=== PATIENT | female | born 1940 | race Caucasian/White ===

== ENCOUNTER 2019-09-04 19:25 | Inpatient (IN) ==
[2019-09-04] MEDS: *HR* OxyCODONE Immed Rel 5 MG TABLET PO PRN (23:34)
[2019-09-05] MEDS: *HR* OxyCODONE Immed Rel 5 MG TABLET PO PRN ×4 (06:16→20:08)
[2019-09-05] MEDS ORDERED: Aspirin Enteric Coated 81 MG Tablet PO SCH (09:00)
[2019-09-05] MEDS: Ascorbic Acid 500 MG TABLET PO SCH ×2 (09:08→20:09)
[2019-09-05] MEDS: Cholecalciferol (D-3) 1,000 UNIT (25MCG) TABLET PO SCH (09:08)
[2019-09-05] MEDS: Magnesium Oxide 400 MG TABLET PO SCH (09:08)
[2019-09-05] MEDS: *HR* Heparin 5,000 UNIT/ML VIAL SQ SCH ×2 (09:27→16:26)
[2019-09-05] MEDS ORDERED: cloNIDine HCl 0.1 MG TABLET PO PRN (13:58)
[2019-09-05] MEDS ORDERED: *HR* OxyCODONE Immed Rel 5 MG TABLET PO ONE (14:02)
[2019-09-05 14:33] LABS: Basophils % 0.3 %; Eosinophils % 0.1 %; Hematocrit 35.4 % (35.3-44.9); Hemoglobin 11.7 g/dL (11.5-15.4); Immature Granulocytes % 0.7 % (0-4); Lymphocytes # 1.3 K/mcL (0.6-4.6); Lymphocytes % 11.8 %; Mean Corpuscular HGB Conc 33.1 g/dL (31.6-35.5); Mean Corpuscular Volume 96.7 fL (83.0-100.0); Mean Platelet Volume 9.3 fL (9.4-12.4); Monocytes # 1.1 K/mcL (0.0-1.3); Monocytes % 10.2 %; Neutrophils # 8.4 K/mcL (1.6-8.9); Platelet Count 275 K/mcL (140-400); Red Blood Count 3.66 M/mcL (3.82-4.97); Red Cell Distribution Width 13.6 % (11.5-14.5); Segmented Neutrophils % 76.9 %; White Blood Count 10.9 K/mcL (4.3-11.1)
[2019-09-05 15:08] LABS: BUN/Creatinine Ratio 37 (6-26); Blood Urea Nitrogen 16 mg/dL (8-23); Calcium 9.2 mg/dL (8.6-10.3); Carbon Dioxide 23 mEq/L (23-29); Chloride 96 mEq/L (98-107); Glucose 148 mg/dL (70-105); Osmolality,Calculated 270 (280-300); Potassium 3.5 mEq/L (3.5-5.1); Sodium 128 mEq/L (136-145); eGFR For African Americans > 60 (> 60); eGFR For Non-African Americans > 60 (> 60)
[2019-09-05] MEDS ORDERED: Latanoprost 2.5 ML BOTTLE BOTH EYES SCH (18:00)
[2019-09-05] MEDS: Latanoprost 2.5 ML BOTTLE BOTH EYES SCH (20:09)
[2019-09-05] MEDS: Melatonin 3 MG TABLET PO PRN (20:09)
[2019-09-06] MEDS: *HR* OxyCODONE Immed Rel 5 MG TABLET PO PRN ×5 (00:17→17:57)
[2019-09-06] MEDS: *HR* Enoxaparin 40 MG/0.4 ML SYRINGE SQ SCH (05:24)
[2019-09-06 06:20] LABS: BUN/Creatinine Ratio 24 (6-26); Blood Urea Nitrogen 9 mg/dL (8-23); Calcium 9.1 mg/dL (8.6-10.3); Carbon Dioxide 31 mEq/L (23-29); Chloride 97 mEq/L (98-107); Glucose 111 mg/dL (70-105); Osmolality,Calculated 277 (280-300); Potassium 3.6 mEq/L (3.5-5.1); Sodium 134 mEq/L (136-145); eGFR For African Americans > 60 (> 60); eGFR For Non-African Americans > 60 (> 60)
[2019-09-06] MEDS: Magnesium Oxide 400 MG TABLET PO SCH (08:52)
[2019-09-06] MEDS: Ascorbic Acid 500 MG TABLET PO SCH ×2 (08:52→20:31)
[2019-09-06] MEDS: Cholecalciferol (D-3) 1,000 UNIT (25MCG) TABLET PO SCH (08:52)
[2019-09-06] MEDS: Melatonin 3 MG TABLET PO PRN (20:31)
[2019-09-06] MEDS: Latanoprost 2.5 ML BOTTLE BOTH EYES SCH (20:31)
[2019-09-07] MEDS: *HR* OxyCODONE Immed Rel 5 MG TABLET PO PRN (06:31)
[2019-09-07] MEDS: *HR* Enoxaparin 40 MG/0.4 ML SYRINGE SQ SCH (06:32)
[2019-09-07] MEDS: Magnesium Oxide 400 MG TABLET PO SCH (08:08)
[2019-09-07] MEDS: Ascorbic Acid 500 MG TABLET PO SCH ×2 (08:08→22:38)
[2019-09-07] MEDS: Cholecalciferol (D-3) 1,000 UNIT (25MCG) TABLET PO SCH (08:08)
[2019-09-07] MEDS: Latanoprost 2.5 ML BOTTLE BOTH EYES SCH (22:38)
[2019-09-07] MEDS: Melatonin 3 MG TABLET PO PRN (22:38)
[2019-09-08] MEDS: *HR* Enoxaparin 40 MG/0.4 ML SYRINGE SQ SCH (04:20)
[2019-09-08] MEDS: *HR* OxyCODONE Immed Rel 5 MG TABLET PO PRN ×3 (04:21→20:07)
[2019-09-08] MEDS: Magnesium Oxide 400 MG TABLET PO SCH (08:42)
[2019-09-08] MEDS: Ascorbic Acid 500 MG TABLET PO SCH ×2 (08:42→20:08)
[2019-09-08] MEDS: Cholecalciferol (D-3) 1,000 UNIT (25MCG) TABLET PO SCH (08:42)
[2019-09-08] MEDS: Melatonin 3 MG TABLET PO PRN (20:07)
[2019-09-08] MEDS: Latanoprost 2.5 ML BOTTLE BOTH EYES SCH (20:08)
[2019-09-09] MEDS: *HR* OxyCODONE Immed Rel 5 MG TABLET PO PRN ×3 (04:07→18:56)
[2019-09-09] MEDS: *HR* Enoxaparin 40 MG/0.4 ML SYRINGE SQ SCH (04:07)
[2019-09-09] MEDS: Ascorbic Acid 500 MG TABLET PO SCH ×2 (08:52→20:59)
[2019-09-09] MEDS: Cholecalciferol (D-3) 1,000 UNIT (25MCG) TABLET PO SCH (08:53)
[2019-09-09] MEDS: Magnesium Oxide 400 MG TABLET PO SCH (08:53)
[2019-09-09] MEDS: Melatonin 3 MG TABLET PO PRN (20:59)
[2019-09-09] MEDS: Latanoprost 2.5 ML BOTTLE BOTH EYES SCH (20:59)
[2019-09-10] MEDS: *HR* Enoxaparin 40 MG/0.4 ML SYRINGE SQ SCH (04:54)
[2019-09-10] MEDS: *HR* OxyCODONE Immed Rel 5 MG TABLET PO PRN ×4 (04:54→20:58)
[2019-09-10] MEDS: Ascorbic Acid 500 MG TABLET PO SCH ×2 (08:47→20:56)
[2019-09-10] MEDS: Magnesium Oxide 400 MG TABLET PO SCH (08:47)
[2019-09-10] MEDS: Cholecalciferol (D-3) 1,000 UNIT (25MCG) TABLET PO SCH (08:47)
[2019-09-10] MEDS: Latanoprost 2.5 ML BOTTLE BOTH EYES SCH (20:57)
[2019-09-10] MEDS: Melatonin 3 MG TABLET PO PRN (20:57)
[2019-09-11] MEDS: *HR* Enoxaparin 40 MG/0.4 ML SYRINGE SQ SCH (05:43)
[2019-09-11] MEDS: *HR* OxyCODONE Immed Rel 5 MG TABLET PO PRN ×4 (05:43→21:52)
[2019-09-11] MEDS: Cholecalciferol (D-3) 1,000 UNIT (25MCG) TABLET PO SCH (10:05)
[2019-09-11] MEDS: Ascorbic Acid 500 MG TABLET PO SCH ×2 (10:05→21:51)
[2019-09-11] MEDS: Magnesium Oxide 400 MG TABLET PO SCH (10:06)
[2019-09-11] MEDS: Melatonin 3 MG TABLET PO PRN (21:52)
[2019-09-11] MEDS: Latanoprost 2.5 ML BOTTLE BOTH EYES SCH (21:56)
[2019-09-12] MEDS: *HR* Enoxaparin 40 MG/0.4 ML SYRINGE SQ SCH (04:40)
[2019-09-12] MEDS: *HR* OxyCODONE Immed Rel 5 MG TABLET PO PRN ×3 (04:40→18:23)
[2019-09-12] MEDS: Ascorbic Acid 500 MG TABLET PO SCH ×2 (08:05→20:32)
[2019-09-12] MEDS: Magnesium Oxide 400 MG TABLET PO SCH (08:05)
[2019-09-12] MEDS: Cholecalciferol (D-3) 1,000 UNIT (25MCG) TABLET PO SCH (08:05)
[2019-09-12] MEDS: Latanoprost 2.5 ML BOTTLE BOTH EYES SCH (20:32)
[2019-09-12] MEDS: Melatonin 3 MG TABLET PO PRN (20:32)
[2019-09-13] MEDS: *HR* Enoxaparin 40 MG/0.4 ML SYRINGE SQ SCH (05:05)
[2019-09-13] MEDS: *HR* OxyCODONE Immed Rel 5 MG TABLET PO PRN ×2 (07:35→20:35)
[2019-09-13] MEDS: Magnesium Oxide 400 MG TABLET PO SCH (09:10)
[2019-09-13] MEDS: Ascorbic Acid 500 MG TABLET PO SCH ×2 (09:10→20:34)
[2019-09-13] MEDS: Cholecalciferol (D-3) 1,000 UNIT (25MCG) TABLET PO SCH (09:10)
[2019-09-13] MEDS: Melatonin 3 MG TABLET PO PRN (20:34)
[2019-09-13] MEDS: Latanoprost 2.5 ML BOTTLE BOTH EYES SCH (20:35)
[2019-09-14 05:41] LABS: Basophils % 0.5 %; Eosinophils # 0.2 K/mcL (0.0-0.6); Hematocrit 27.5 % (35.3-44.9); Hemoglobin 8.9 g/dL (11.5-15.4); Immature Granulocytes % 0.5 % (0-4); Lymphocytes # 1.1 K/mcL (0.6-4.6); Lymphocytes % 17.5 %; Mean Corpuscular HGB Conc 32.4 g/dL (31.6-35.5); Mean Corpuscular Hemoglobin 31.3 pg (28.0-33.3); Mean Corpuscular Volume 96.8 fL (83.0-100.0); Mean Platelet Volume 8.6 fL (9.4-12.4); Monocytes # 0.7 K/mcL (0.0-1.3); Monocytes % 11.8 %; Platelet Count 359 K/mcL (140-400); Red Blood Count 2.84 M/mcL (3.82-4.97); Red Cell Distribution Width 13.5 % (11.5-14.5); Segmented Neutrophils % 66.7 %
[2019-09-14] MEDS: *HR* OxyCODONE Immed Rel 5 MG TABLET PO PRN ×2 (06:30→11:42)
[2019-09-14] MEDS: *HR* Enoxaparin 40 MG/0.4 ML SYRINGE SQ SCH (06:30)
[2019-09-14 06:51] VITALS: BP 154/74
[2019-09-14] MEDS: Ascorbic Acid 500 MG TABLET PO SCH (08:07)
[2019-09-14] MEDS: Cholecalciferol (D-3) 1,000 UNIT (25MCG) TABLET PO SCH (08:07)
[2019-09-14] MEDS: Magnesium Oxide 400 MG TABLET PO SCH (08:07)
== END 2019-09-14 12:24 | disposition home or self-care (01) | DRG 561 ==
LOC: INPGRE 19:25
PROVIDERS: ADMIT Family Medicine; ATTEND Family Medicine